=== PATIENT | male | born 2000 | race African-American/Black ===

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

== ENCOUNTER 2018-01-28 20:16 | Emergency (ER) | payer MEDICAID | END 2018-01-29 00:32 | disposition home or self-care (01) | LOC: D.ER 20:16 | DX: G47.00 Insomnia, unspecified (principal) ==

== ENCOUNTER 2018-04-21 14:40 | Emergency (ER) | payer MEDICAID | END 2018-04-21 17:25 | disposition home or self-care (01) | LOC: D.ER 14:40 | DX: J06.9 Acute upper respiratory infection, unspecified (principal); J20.9 Acute bronchitis, unspecified ==

== ENCOUNTER 2018-05-06 22:00 | Emergency (ER) | payer MEDICAID ==
[~2018-05-06] VITALS: Ht 182.9 cm; Wt 77.3 kg
[2018-05-06 22:08] VITALS: Ht 182.9 cm; Wt 77.3 kg
[2018-05-06] MEDS ORDERED: OMNICEF300 MG PO (22:28)
[2018-05-06] MEDS ORDERED: TORADOL10 MG PO (22:29)
[2018-05-07 00:52] VITALS: BP 118/79
== END 2018-05-06 23:55 | disposition home or self-care (01) ==
LOC: D.ER 22:00
DX: J06.9 Acute upper respiratory infection, unspecified (principal); R05 Cough

== ENCOUNTER 2018-07-17 08:43 | Emergency (ER) | payer MEDICAID ==
[~2018-07-17] VITALS: Ht 182.9 cm; Wt 68.2 kg
[~2018-07-17 08:43] MED LIST: OMNICEF300 MG PO; TORADOL10 MG PO
[2018-07-17 08:50] VITALS: BP 138/95; Ht 182.9 cm; Wt 68.2 kg
[2018-07-17] MEDS ORDERED: HYDROCODON-ACE1 EAC7 PO (09:26)
== END 2018-07-17 09:42 | disposition home or self-care (01) ==
LOC: D.ER 08:43
DX: S69.91XA Unspecified injury of right wrist, hand and finger(s), initial encounter (principal); W23.0XXA Caught, crushed, jammed, or pinched between moving objects, initial encounter; Y93.89 Activity, other specified; Y92.019 Unspecified place in single-family (private) house as the place of occurrence of the external cause; S50.811A Abrasion of right forearm, initial encounter

== ENCOUNTER 2018-10-23 11:05 | Emergency (ER) | payer MEDICAID ==
[~2018-10-23] VITALS: Ht 182.9 cm; Wt 65.9 kg
[~2018-10-23 11:05] MED LIST changes: +HYDROCODON-ACE1 EAC7 PO
[2018-10-23 11:17] VITALS: Ht 182.9 cm; Wt 65.9 kg
[2018-10-23] MEDS ORDERED: SUDAFED 30 MG T30 MG PO (13:39)
[2018-10-23] MEDS ORDERED: ZYRTEC10 MG PO (13:39)
[2018-10-23] MEDS ORDERED: FLUTICASONE PRO16 GM NASAL (13:39)
[2018-10-23 13:51] VITALS: BP 117/85
== END 2018-10-23 13:54 | disposition home or self-care (01) ==
LOC: D.ER 11:05
DX: J00 Acute nasopharyngitis [common cold] (principal)

== ENCOUNTER 2018-10-31 19:05 | Emergency (ER) | payer MEDICAID | END 2018-10-31 20:29 | disposition home or self-care (01) | LOC: D.ER 19:05 | DX: J02.0 Streptococcal pharyngitis (principal); R09.89 Other specified symptoms and signs involving the circulatory and respiratory systems; F17.200 Nicotine dependence, unspecified, uncomplicated ==

== ENCOUNTER 2019-03-16 20:35 | Emergency (ER) | payer SELFPAY ==
[~2019-03-16] VITALS: Ht 182.9 cm; Wt 68.2 kg
[~2019-03-16 20:35] MED LIST changes: +FLUTICASONE PRO16 GM NASAL; +SUDAFED 30 MG T30 MG PO; +ZYRTEC10 MG PO
[2019-03-16 21:37] VITALS: Ht 182.9 cm; Wt 68.2 kg
[2019-03-17] MEDS ORDERED: TYLENOL W/CODEI1 TAB PO (00:48)
[2019-03-17] MEDS ORDERED: PENICILLIN V P500 MG PO (00:48)
[2019-03-17] MEDS ORDERED: ORAL ANALGESIC9 GM TOPICAL (00:49)
[2019-03-17 01:10] VITALS: BP 110/85
== END 2019-03-17 01:11 | disposition home or self-care (01) ==
LOC: D.ER 20:35
DX: K02.9 Dental caries, unspecified (principal); F17.200 Nicotine dependence, unspecified, uncomplicated

== ENCOUNTER 2019-05-31 00:45 | Emergency (ER) | payer SELFPAY ==
[~2019-05-31] VITALS: Ht 182.9 cm; Wt 79.5 kg
[~2019-05-31 00:45] MED LIST changes: +ORAL ANALGESIC9 GM TOPICAL; +PENICILLIN V P500 MG PO; +TYLENOL W/CODEI1 TAB PO
[2019-05-31 00:52] VITALS: Ht 182.9 cm; Wt 79.5 kg
[2019-05-31] MEDS ORDERED: TORADOL10 MG PO (01:24)
== END 2019-05-31 01:34 | disposition home or self-care (01) ==
LOC: D.ER 00:45
DX: M79.662 Pain in left lower leg (principal); S86.812A Strain of other muscle(s) and tendon(s) at lower leg level, left leg, initial encounter; X58.XXXA Exposure to other specified factors, initial encounter; Y93.89 Activity, other specified; Y92.89 Other specified places as the place of occurrence of the external cause

== ENCOUNTER 2019-06-11 01:52 | Emergency (ER) | payer SELFPAY ==
[~2019-06-11] VITALS: Ht 182.9 cm; Wt 65.9 kg
[2019-06-11 02:22] VITALS: Ht 182.9 cm; Wt 65.9 kg
[2019-06-11] MEDS ORDERED: IBUPROFEN800 MG PO (03:44)
[2019-06-11] MEDS ORDERED: ACETAMINOPHEN500 M1 PO (03:44)
[2019-06-11 06:00] VITALS: BP 122/75
== END 2019-06-11 06:00 | disposition home or self-care (01) ==
LOC: D.ER 01:52
DX: M79.661 Pain in right lower leg (principal)

== ENCOUNTER 2019-10-14 22:43 | Emergency (ER) | payer SELFPAY ==
[~2019-10-14] VITALS: Ht 182.9 cm; Wt 81.8 kg
[~2019-10-14 22:43] MED LIST changes: +ACETAMINOPHEN500 M1 PO; +IBUPROFEN800 MG PO
[2019-10-14 22:50] VITALS: BP 142/78; Ht 182.9 cm; Wt 81.8 kg
== END 2019-10-15 00:13 | disposition home or self-care (01) ==
LOC: D.ER 22:43
DX: J02.9 Acute pharyngitis, unspecified (principal)

== ENCOUNTER 2019-11-08 17:35 | Emergency (ER) | payer SELFPAY ==
[~2019-11-08] VITALS: Ht 182.9 cm; Wt 85.9 kg
[2019-11-08 17:44] VITALS: BP 142/84; Ht 182.9 cm; Wt 85.9 kg
[2019-11-08] MEDS ORDERED: ORAL ANALGESIC9 GM TOPICAL (18:11)
[2019-11-08] MEDS ORDERED: PENICILLIN V P500 MG PO (18:11)
== END 2019-11-08 18:46 | disposition home or self-care (01) ==
LOC: D.ER 17:35
DX: S02.5XXA Fracture of tooth (traumatic), initial encounter for closed fracture (principal); K02.9 Dental caries, unspecified

== ENCOUNTER 2021-03-01 21:16 | Emergency (ER) | payer MEDICAID ==
[~2021-03-01] VITALS: Ht 182.9 cm; Wt 82.7 kg
[~2021-03-01 21:16] MED LIST changes: +AUGMENTIN 875-11 TAB PO
[2021-03-01 21:23] VITALS: Ht 182.9 cm; Wt 82.7 kg
[2021-03-01] MEDS ORDERED: CLARITIN 10 MG10 MG PO (21:46)
[2021-03-01] MEDS ORDERED: NAPROSYN500 MG PO (21:46)
[2021-03-01 22:13] LABS: INFLUENZA TYPE A NEGATIVE (NEGATIVE); INFLUENZA TYPE B NEGATIVE (NEGATIVE)
[2021-03-01 22:44] LABS: SARS-CoV-2 ANTIGEN NEGATIVE- SARS-COV-2 (NEGATIVE)
[2021-03-01] MEDS ORDERED: BROMFED-DM COU473 ML PO (22:44)
[2021-03-01] MEDS ORDERED: ALBUTEROL SULF8.5 GM INH (22:47)
[2021-03-02 00:03] VITALS: BP 128/74
== END 2021-03-02 00:03 | disposition home or self-care (01) ==
LOC: D.ER 21:16
PROVIDERS: Family Medicine
DX: J06.9 Acute upper respiratory infection, unspecified (principal); R07.89 Other chest pain; R51.9 Headache, unspecified; R53.81 Other malaise